=== PATIENT | male | born 1970 | race African-American/Black ===

== ENCOUNTER 2017-09-15 18:55 | Emergency (ER) | payer MEDICAID ==
[~2017-09-15] VITALS: Ht 175.3 cm; Wt 78.0 kg
[2017-09-16] MEDS ORDERED: KETOROLAC 60MG/2ML VIAL IM ONE (02:30)
[2017-09-16 03:17] VITALS: BP 112/60
== END 2017-09-16 03:42 | disposition home or self-care (01) ==
LOC: ER 18:55
DX: M54.5 Low back pain (principal); M54.30 Sciatica, unspecified side; F17.200 Nicotine dependence, unspecified, uncomplicated
CPT/HCPCS: 96372; 99283; J1885; Z7610